=== PATIENT | female | born 1935 | race Caucasian/White ===

== ENCOUNTER 2017-09-12 08:04 | Outpatient (CLI) | payer MEDICARE ==
[2017-09-12] MEDS ORDERED: Lidocaine 1% PF 10 ML AMP ONE (08:30)
[2017-09-12] MEDS ORDERED: Iopamidol 300 61% 50 ML VIAL FS ONE (08:30)
[2017-09-12] MEDS ORDERED: EPINEPHrine 1 MG/ML AMP ONE (08:30)
[2017-09-12] MEDS ORDERED: Sodium Chloride 0.9% 50 ML BAG ONE (08:30)
--- NOTE | 2017-09-12 12:24 | RAD ---
LEFT SHOULDER ARTHROGRAM: INDICATIONS: Shoulder pain. TECHNIQUE: Informed consent was obtained. Pre-procedure ict support engineer images were performed of the left shoulder joint. The left shoulder joint was sterilely prepped and draped in the usual sterile fashion. Buffered 1% Lidocaine was administered to the overlying subcutaneous tissues. Under fluoroscopic guidance, a 22 gauge spinal needle was guided down into the glenohumeral joint. There was administration of 8 mL o f diluted Omnipaque solution, so the patient's CT arthrogram was ordered to follow this procedure. T he patient tolerated the injection without difficulty. The total fluoroscopic time was 0.5 minutes. Total exposure was 62.5 mGy per m2. FINDINGS: Medical Doctor images demonstrate a comminuted, healing fracture involving the scapular body with fracture ext ension through the lateral border of the scapula, just inferior to the glenoid neck. The prosthesis projects in the expected position without overt evidence of loosening. There is no overt involvement of the left total shoulder prosthesis. There is diffuse osteopenia. IMPRESSION: 1. Successful left shoulder arthrogram. 2. Comminuted healing left scapular body fracture. POS: [facility]
--- NOTE | 2017-09-12 12:33 | CT ---
CT ARTHROGRAM OF THE LEFT SHOULDER: INDICATION: History of fall with left shoulder pain and left total shoulder replacement, concern for possible rot ator cuff tear. COMPARISON: Prior exam dated 02/07/15. FINDINGS: There is left total shoulder prosthesis that projects in the expected position. There is a small full-thickness tear involving the anterior infraspinatus and posterior supraspinatus at the region of the conjoined tendons best seen on image 17 on the sagittal series and image 35 of the coronal series. The polyethylene glenoid prosthesis is in place. There is a healing comminuted scapular body fracture with fracture comminution extension to the infer ior aspect of the glenoid neck on image 42 of series 4. There is no evidence for fracture extension into the glenoid articular surface or the central to superior aspect of the glenoid. The coracoid pr ocess is intact. Fracture comminution does extend near the origin of the acromial spine in the super omedial aspect of the scapula. The AC joint appears within normal limits. The intraarticular biceps tendon is not definitely visual ized and may be disrupted and distally retracted. The visualized left lung demonstrates some mild scattered ground-glass opacity which may be related t o subsegmental atelectasis or mild edema. No pleural effusion is evident. There is a 1.6 cm focus o f heterotopic ossification just anterior to the subscapularis within the region of the proximal carpa l brachialis which may be postsurgical in nature. IMPRESSION: 1. Focal full-thickness tear of the rotator cuff at the conjoined tendon area of the posterior supra spinatus and anterior infraspinatus. 2. Healing comminuted scapular body fracture with fracture comminution extending and involving the i nferior aspect of the glenoid neck without extension into the central or superior aspect of the gleno id neck. 3. Suspected full thickness disruption of the long head of the biceps tendon with distal retraction. 4. Scattered ground-glass opacities of the lung may reflect subsegmental atelectasis or mild airspac e edema. POS: [facility]
== END 2017-09-12 08:05 | disposition home or self-care (01) ==
LOC: RAD 08:04
PROVIDERS: ATTEND Orthopaedic Surgery
DX: M25.512 Pain in left shoulder (principal); M75.102 Unspecified rotator cuff tear or rupture of left shoulder, not specified as traumatic; S42.142D Displaced fracture of glenoid cavity of scapula, left shoulder, subsequent encounter for fracture with routine healing; S42.112D Displaced fracture of body of scapula, left shoulder, subsequent encounter for fracture with routine healing; R91.8 Other nonspecific abnormal finding of lung field
CPT/HCPCS: 23350; J0171; J7050

== ENCOUNTER 2018-06-19 14:03 | Outpatient (CLI) | payer MEDICARE | END 2018-06-19 14:04 | disposition home or self-care (01) | LOC: BICMAMMO 14:03 | PROVIDERS: ATTEND Internal Medicine | DX: Z12.31 Encounter for screening mammogram for malignant neoplasm of breast (principal); R92.1 Mammographic calcification found on diagnostic imaging of breast; Z80.3 Family history of malignant neoplasm of breast | CPT/HCPCS: 77063; 77067 ==

== ENCOUNTER 2019-03-23 14:00 | Inpatient (IN) | payer MEDICARE ==
[2019-03-24 15:00] VITALS: BMI 30.7
[2019-03-25] MEDS ORDERED: Sodium Chloride 0.9% 100 ML ONE (08:01)
[2019-03-25] MEDS ORDERED: Tranexamic Acid 1,000 MG/10 ML VIAL ONE (08:01)
[2019-03-25] MEDS ORDERED: Vancomycin HCl 1.5 GM in Sodium Chloride 0.9% 250 ML 300 ML IVPB SCH ×3 (08:15→21:00)
[2019-03-25] MEDS ORDERED: Fentanyl 100 MCG/2 ML VIAL ONE (08:42)
[2019-03-25] MEDS ORDERED: Midazolam HCl 2 mg/2 ml Vial ONE (08:42)
[2019-03-25] MEDS ORDERED: Lidocaine 1% (PF) 30 ML VIAL ONE (08:42)
[2019-03-25] MEDS ORDERED: Zolpidem Tartrate 5 MG TAB PO PRN ×2 (10:01→14:52)
[2019-03-25] MEDS ORDERED: Promethazine HCl 25 MG/ML VIAL IM PRN (10:01)
[2019-03-25] MEDS ORDERED: HYDROcodone/Acetaminophen 10/325 mg Tablet PO PRN ×3 (10:01→14:52)
[2019-03-25] MEDS ORDERED: Ondansetron PF 4 MG/2 ML Vial IVP PRN ×2 (10:01→14:52)
[2019-03-25] MEDS ORDERED: traMADol HCl 50 MG TAB PO PRN ×4 (10:01→14:52)
[2019-03-25] MEDS ORDERED: Ropivacaine 0.2% 550 ML 550 ML NERVE BLCK SCH (10:01)
[2019-03-25] MEDS ORDERED: Acetaminophen 325 MG TAB PO PRN ×2 (10:01→14:52)
[2019-03-25] MEDS ORDERED: Fentanyl 100 MCG/2 ML VIAL IV PRN (10:02)
--- NOTE | 2019-03-25 13:35 | RAD ---
Exam: XR Shoulder Rt 2 View HISTORY: Right total shoulder arthroplasty. COMPARISON: None FINDINGS: Postsurgical changes related to placement of a right shoulder prosthesis are noted. Overlying skin cl ips are seen. No hardware complication is identified. No fracture or dislocation is seen. There is mild right acromioclavicular joint osteoarthritis. There is a calcification seen just medial to the small right humeral diaphysis. There is mild elevation of the right hemidiaphragm with atelectasis at the right lung base. A hiatal hernia is seen in the retrocardiac region with atelectasis present at the left lung base. Vascular calcifications are seen in the thoracic aorta. Degenerative changes are seen in the spine. IMPRESSION: Postsurgical changes related to right shoulder prosthesis.
[2019-03-25] MEDS ORDERED: Milk Of Magnesia 30 ML UDCUP PO PRN (14:52)
[2019-03-25] MEDS ORDERED: Methocarbamol 1 GM/10 ML VIAL SLOW IVP PRN (14:52)
[2019-03-25] MEDS ORDERED: Ondansetron ODT 4 MG TAB PO PRN (14:52)
[2019-03-25] MEDS ORDERED: Bisacodyl 10 MG SUPP PR PRN (14:52)
[2019-03-25] MEDS ORDERED: diphenhydrAMINE 50 MG CAP PO PRN (14:52)
[2019-03-25] MEDS ORDERED: Methocarbamol 500 MG TAB PO PRN (14:52)
[2019-03-25] MEDS ORDERED: Nitroglycerin 4.9 GM Bottle SL PRN (15:08)
--- NOTE | 2019-03-25 15:16 | OP ---
DATE OF PROCEDURE: 03/25/2019 PREOPERATIVE DIAGNOSES: 1. Right shoulder osteoarthritis. 2. Biceps tendinopathy. POSTOPERATIVE DIAGNOSES: 1. Right shoulder osteoarthritis. 2. Biceps tendinopathy. PROCEDURES PERFORMED: 1. Right total shoulder arthroplasty. 2. Biceps tenodesis. ASSISTANT CORPORATE CONTROLLER: Lexa Sanders PA-C. ANESTHESIA: Horowitz. The patient received a general endotracheal intubation with interscalene block. ESTIMATED BLOOD LOSS: 200 mL. TOURNIQUET TIME: None. IMPLANTS: Tornier M40 CortiLoc glenoid to a flex stem, a 43 x 6 mm high offset head, Tornier implants. ANTIBIOTICS: Ancef 2 g and vancomycin 1.5 g, and TXA 1 g. COMPLICATIONS: None. HISTORY OF PRESENT ILLNESS: Ms. Hager is an 83-year-old female, who had a previous left total shoulder arthroplasty. The patient presents with right shoulder pain. She had failed conservative measures with injections. The patient desired to proceed with operative intervention. I discussed the risks and benefits of surgery include pain, scar, bleeding, infection, damage to vital structures, decreased range of motion and strength, failure of procedure, continued pain despite surgical intervention, loss of life or limb. The patient understood the risks and benefits of the procedure and would like to proceed. DESCRIPTION OF PROCEDURE: Time-out was performed, designating the patient's right upper extremity as operative site based on site, consents, and marking. After a time-out, the patient's right upper extremity was prepped and draped in a sterile fashion. We made a deltopectoral incision, came down between the deltoid and the pectoralis muscle, took the vein medially. We put our conjoined retractor and found our biceps, came through the biceps groove. She had a small lesser and kind of nodular bulbous tissue. Therefore, I did a tendon peel, I peeled off and exposed the entire humeral head joint inferiorly. After exposing the head, there was some tori rusting fluid, seem like hemarthrosis, that was noted intra-articularly as well as kind of a dark and black head that could be some signs of AVN. We placed Hohmann retractors to protect and cut the head. We removed the bone. We then traced our opening awl, broached, and placed a size 3 stem. We placed our head cap on after we had cleaned into position. We then exposed the glenoid. A 360 release of the glenoid, removing the labrum after completion of this. We then sized to a 40, placed our center hole. We did our 2 stage reamer, drilled for large center peg, placed in position, drilled 3 holes in the glenoid. We happy with those positions. We washed. We started our cement. We trialed her in 40, which had good firm fixation. We removed it . We cemented in the 3 center pegs with out CortiLoc glenoid. We then removed this and went back to our humerus. We trialed. We felt like the 43 head fit the bone the best top to bottom and removed it. We drilled 4 drill holes with the sutures coming out through the metaphyseal portion of the bone. We sew the tendon down in for the peel. At the completion of the hardening of cement after 18 minutes, we placed our trial in, reduced, was able to do 40 degrees external rotation, placed upon internal and overhead elevation. We happy that. We placed our one more drill hole laterally and passed a suture to help with the 2nd row suture repair. I then washed, impacted our stem, implanted into place. We then sewed the cuff anteriorly, placing W stitches up and down through the cuff, sew over to our four stitches that were along the border of the tuberosity. We sewed from them from inferior to superior. After completion of this, we used a #1 Ethibond to close the rotator interval. We tenodesed our biceps with #1 Ethibond and 1 Vicryl to tenodese the biceps in the groove. We then closed the rest of it to ensure as we closed. We then used the 2 stitches, one in the more medialized subscap and near the greater tuberosity to a double row over the top, so those together and cut, washed, we were happy with the closure. We closed the deltopectoral interval with 0, 2-0, and kiko. The patient will be admitted, followed in-house, begin passive range of motion per protocol. Job ID: [id number]
[2019-03-25] MEDS: CEFAZOLIN 2 GM in Premix Bag 1 BAG IVPB SCH ×2 (16:13→23:57)
[2019-03-25] MEDS: Sodium Chloride 0.9% 1,000 ML IV SCH (16:23)
[2019-03-25] MEDS: Gabapentin 300 MG CAP PO SCH (19:48)
[2019-03-25] MEDS: Atorvastatin Calcium 20 MG TAB PO SCH (19:48)
[2019-03-25] MEDS: Famotidine 20 MG TAB PO SCH (19:49)
[2019-03-25] MEDS: ALPRAZolam 0.25 MG TAB PO SCH (19:49)
[2019-03-25] MEDS: Ketorolac Tromethamine 30 MG/ML VIAL IVP PRN (19:50)
[2019-03-26] MEDS: HYDROcodone/Acetaminophen 10/325 mg Tablet PO PRN ×2 (02:20→14:23)
[2019-03-26] MEDS: Levothyroxine Sodium 100 MCG TAB PO SCH (06:13)
[2019-03-26] MEDS: Sodium Chloride 0.9% 1,000 ML IV SCH ×2 (08:14→20:21)
[2019-03-26] MEDS: Nebivolol HCl 5 MG TAB PO SCH (08:52)
[2019-03-26] MEDS: Gabapentin 300 MG CAP PO SCH ×3 (08:53→20:19)
[2019-03-26] MEDS: Calcium Carbonate + Vit D 1 TAB PO SCH (08:53)
[2019-03-26] MEDS: ALPRAZolam 0.25 MG TAB PO SCH ×3 (08:53→20:19)
[2019-03-26] MEDS: Acetaminophen 325 MG TAB PO SCH (08:53)
[2019-03-26] MEDS: Potassium Chloride 10 MEQ TAB PO SCH (08:54)
[2019-03-26] MEDS: Famotidine 20 MG TAB PO SCH ×2 (08:54→20:19)
[2019-03-26] MEDS: Aspirin Chewable 81 MG TAB PO SCH (08:54)
[2019-03-26] MEDS: Furosemide 40 MG TAB PO SCH (08:54)
[2019-03-26] MEDS: Atorvastatin Calcium 20 MG TAB PO SCH (20:20)
[2019-03-27] MEDS: Ketorolac Tromethamine 30 MG/ML VIAL IVP PRN (02:42)
[2019-03-27 04:07] VITALS: TEMP 98.6
[2019-03-27] MEDS: Levothyroxine Sodium 100 MCG TAB PO SCH (06:45)
[2019-03-27 07:33] VITALS: BP 148/79
[2019-03-27] MEDS: Potassium Chloride 10 MEQ TAB PO SCH (08:28)
[2019-03-27] MEDS: Acetaminophen 325 MG TAB PO SCH (08:29)
[2019-03-27] MEDS: Furosemide 40 MG TAB PO SCH (08:30)
[2019-03-27] MEDS: Nebivolol HCl 5 MG TAB PO SCH (08:30)
[2019-03-27] MEDS: Calcium Carbonate + Vit D 1 TAB PO SCH (08:30)
[2019-03-27] MEDS: Gabapentin 300 MG CAP PO SCH (08:30)
[2019-03-27] MEDS: Aspirin Chewable 81 MG TAB PO SCH (08:30)
[2019-03-27] MEDS: Famotidine 20 MG TAB PO SCH (08:30)
[2019-03-27] MEDS: ALPRAZolam 0.25 MG TAB PO SCH (08:31)
== END 2019-03-27 10:40 | disposition home or self-care (01) | DRG 483 ==
LOC: SJJU 03-25 07:35 → SURG B 03-25 14:15
PROVIDERS: ADMIT Orthopaedic Surgery; ATTEND Orthopaedic Surgery
PROC: 0RRJ0JZ Replacement of Right Shoulder Joint with Synthetic Substitute, Open Approach (ICD-10-PCS; principal; 2019-03-25)
PROC: 0LS30ZZ Reposition Right Upper Arm Tendon, Open Approach (ICD-10-PCS; 2019-03-25)
DX: M19.011 Primary osteoarthritis, right shoulder (principal); E03.9 Hypothyroidism, unspecified; Z96.652 Presence of left artificial knee joint; M54.12 Radiculopathy, cervical region; Z90.89 Acquired absence of other organs; Z79.82 Long term (current) use of aspirin; Z79.899 Other long term (current) drug therapy
CPT/HCPCS: 80048; 81001; 85025; 85610; 93005; A4306; J0690; J1885; J2001; J2250; J2795; J3010; J3370; J3490; J7050

== ENCOUNTER 2019-03-24 13:54 | Outpatient (CLI) | payer MEDICARE ==
[2019-03-24 17:00] LABS: #Eosinphils 0.1 thou/uL (0.0-0.7); #Lymphocytes 2.5 thou/uL (1.20-3.40); #Monocytes 0.5 thou/uL (0.11-0.59); #Neutrophils 3.1 thou/uL (1.40-6.50); %Basophils 0.8 % (0.0-1.0); %Eosinophils 1.3 % (0.0-10.0); %Lymphocytes 39.9 % (21.0-51.0); Hemoglobin 12.8 g/dL (12.0-16.0); Mean Corpuscular HGB CONC 33.6 g/dL (32.0-36.0); Mean Corpuscular Hemoglobin 33.4 pg (27.0-31.0); Mean Corpuscular Volume 99.3 fL (78.0-98.0); Mean Platelet Volume 6.6 fL (7.4-10.4); Platelet Count 264 thou/uL (130-400); RBC Distribution Width 12.4 % (11.5-14.5); Red Blood Cell (RBC) Count 3.83 mill/uL (4.20-5.40); White Blood Cell (WBC) Count 6.3 thou/uL (4.8-10.8)
[2019-03-24 17:02] LABS: Prothrombin Time 12.8 SEC (12.0-14.7)
[2019-03-24 17:09] LABS: Bilirubin Negative (Negative); Blood, Urine Negative (Negative); Clarity Clear (Clear); Glucose, Urine (Dipstick) Normal (Negative); Leukocyte Negative Leu/uL (Negative); Nitrite Negative (Negative); Protein, Urine (Dipstick) Negative (Neg-Trace); RBC/HPF 0-3 HPF (0-3); Squamous Epithelial 0-3 HPF (0-3); Urobilinogen Normal mg/dL (Less than 2); WBC/HPF 0-3 HPF (0-3)
[2019-03-24 17:10] LABS: Bacteria/HPF 1+ HPF (None Seen)
--- NOTE | 2019-03-24 17:13 | EKG ---
Test Reason : Blood Pressure : / mmHG Vent. Rate : 060 BPM Atrial Rate : 060 BPM P-R Int : 188 ms QRS Dur : 098 ms QT Int : 470 ms P-R-T Axes : 042 -35 030 degrees QTc Int : 470 ms Normal sinus rhythm Left axis deviation Cannot rule out Anterior infarct , age undetermined Abnormal ECG Confirmed by MAREK ROSALES ([id number]) on 03/24/2019 5:12:34 PM Referred By: MARIA EUGENIA Confirmed By:MAREK ROSALES
[2019-03-24 17:25] LABS: Anion Gap 12 mmol/L (10-20); BUN (Urea Nitrogen) 24 mg/dL (9.8-20.1); Calc. Creatinine Clearance 0 mL/min (70-130); Calcium 9.2 mg/dL (7.8-10.44); Carbon Dioxide 27 mmol/L (23-31); Chloride 107 mmol/L (98-107); Estimated GFR-MDRD 51; Glucose 77 mg/dL (83-110); Potassium 3.8 mmol/L (3.5-5.1); Sodium 142 mmol/L (136-145)
== END 2019-03-24 13:55 | disposition home or self-care (01) ==
LOC: LABBT 13:54
PROVIDERS: ATTEND Orthopaedic Surgery
DX: Z01.818 Encounter for other preprocedural examination (principal); M19.011 Primary osteoarthritis, right shoulder
CPT/HCPCS: 80048; 81001; 85025; 85610; 93005; 93010

== ENCOUNTER 2019-12-10 09:08 | Observation (INO) | payer MEDICARE ==
--- NOTE | 2019-12-10 11:28 | CT ---
EXAM: CTA of the chest HISTORY: Chest pain and weakness COMPARISON: None TECHNIQUE: Multiple contiguous axial images were obtained a CTA of the chest with contrast per pulmon candelario embolism protocol. 3-D oblique MIP reformats and direct coronal reformats were performed. FINDINGS: HEART: Normal in size without focal cardiac abnormality. PULMONARY ARTERIES: Normal in caliber without filling defects to suggest pulmonary emboli. MEDIASTINUM: No hilar or mediastinal lymphadenopathy. There is a large hiatal hernia. LUNGS: No focal infiltrates or masses. Scarring versus atelectasis is seen in the lingula. PLEURAL SPACE: No pleural effusion or pneumothorax. CHEST WALL SOFT TISSUES: Unremarkable VISUALIZED OSSEOUS STRUCTURES: Degenerative changes in the spine. VISUALIZED SUBDIAPHRAGMATIC STRUCTURES: Unremarkable IMPRESSION: 1. No evidence of pulmonary thromboembolism 2. Large hiatal hernia
[2019-12-10] MEDS ORDERED: Iopamidol-370 76% 500 ML 1 ML ONE (12:28)
--- NOTE | 2019-12-10 12:49 | HP ---
PRIMARY CARE PROVIDER: Dr. Montez. SCHOOL PSYCHOLOGY SPECIALIST: Dr. Fontanez. The patient woke this morning at 2 a.m. sweating, felt weak all over and had pressure in her chest, some shortness of breath. No radiation of the chest pressure. No nausea. No fever or chills. PAST MEDICAL HISTORY: She has coronary artery disease, has had multiple cardiac caths, has not had any definitive therapy. She has elevated cholesterol, hypothyroidism, gastroesophageal reflux disease, and hypothyroidism. MEDICINES: 1. Aspirin 81 mg a day. 2. Lipitor 40 mg a day. 3. Bystolic 10 mg a day. 4. Lasix 20 mg a day. 5. Potassium chloride 10 mEq a day. 6. Xanax 0.25 mg twice a day. 7. Gabapentin 600 mg a day at bedtime. 8. Levothyroxine 100 mcg a day. 9. Nitroglycerin p.r.n. 10. Omeprazole 20 mg once a day. 11. Ranexa 100 mg p.o. twice a day. ALLERGIES: CHAU INHIBITORS, HYDROCODONE, TETANUS IMMUNOGLOBULIN, TETANUS TOXOID, TRAMADOL. PAST SURGICAL HISTORY: Bilateral shoulder surgery, bilateral knee surgery, bilateral cataract surgery. SOCIAL HISTORY: She has a granddaughter with diabetes. She has a sister with breast cancer. Mother of colon cancer. She is x2. She states she is do not resuscitate. She is oriented x3. She states Yokasta Corona in [place] is her daughter and next of kin for decision making. No tobacco, no alcohol ever. REVIEW OF SYSTEMS: GENERAL: No headaches, dizziness or fainting. Eyes: No double vision, blurred vision, flashing lights. She wears glasses. ENT: No ear pain or drainage. No nasal bleeding. No trouble swallowing. No oral pain. Cardiac: Frequent episodes of pressured chest pain lasting up to 1 hour to time. She states she just puts her hand over her left chest and holds it there till it goes away. No orthopnea or PND. RESPIRATION: No cough, wheezing, or asthma. GASTROINTESTINAL: No nausea, vomiting, diarrhea, or constipation. No blood in her stools. GENITOURINARY: No hematuria or dysuria. MUSCULOSKELETAL: She takes Lasix to prevent swelling in her legs. No muscle pains or joint pains. Of note, at this time, she does have limited range of motion of both shoulders post surgery. NEUROLOGICAL: No strokes, seizures or focal weakness. PSYCHIATRIC: No anxiety or depression issues. SKIN: No bruising, bleeding, or rash. HEME/LYMPH: No tender or swollen lymph nodes in axilla, inguinal, or cervical area. PHYSICAL EXAMINATION: GENERAL: She is alert, oriented, cooperative lady, in no distress at this time. VITAL SIGNS: Blood pressure 148/72, pulse 65, respirations 18, temperature 98.2, room air sat 95% to 96% at room air. HEAD, EYES, EARS, NOSE, AND THROAT: Revealed pupils equal round with implants. Sclerae are white. Extraocular movements are intact. Tympanic membranes clear. Nose clear. Oral mucous membranes are wet. NECK: No jugular venous distention, adenopathy or thyromegaly. CHEST: Clear to auscultation percussion. HEART: Regular rate and rhythm. First second second heart sounds are clear. There are no appreciated murmurs or gallops. ABDOMEN: Soft. Bowel sounds are normal. There is no hepatosplenomegaly. No mass. No rebound. No bruits. EXTREMITIES: Reveal no cyanosis, clubbing, or edema. PULSES: Carotid, radial, femoral, and dorsalis pedis pulses intact and symmetric. SKIN: Warm and dry. HEME/LYMPH: No tender or swollen lymph nodes in the inguinal, axillary, or cervical range. NEUROLOGICAL: Cranial nerves 2 through 12 are intact. Deep tendon reflexes symmetric. LABORATORY DATA: EKG personally reviewed. No acute ST-T abnormality. Regular sinus rhythm. CT of the chest done. No evidence for PT or infiltrates. Personally reviewed. Laboratory done in [place]; white count 6.3, hemoglobin 11.0, platelet count 209,000. D-dimer 0.46. Sodium 140, potassium 4.2, chloride 108, CO2 of 22, BUN 29, creatinine 1.0, blood sugar 113. Liver tests normal. BNP 195. Troponin 0.015, 0.018. ASSESSMENT: 1. Chest pain. 2. Coronary artery disease documented on multiple occasions and cardiac cath. No intervention recommended. 3. Elevated cholesterol. 4. Hypothyroidism. PLAN: Aspirin. Serial enzymes. Home medicines. Discuss need for further intervention after the third set of enzymes is available. Job ID: [id number]
[2019-12-10 14:22] LABS: Troponin I Less than 0.010 ng/mL (< 0.028)
[2019-12-10] MEDS ORDERED: Sodium Chloride 0.9% 1,000 ML IV SCH (15:29)
[2019-12-10] MEDS ORDERED: Ondansetron ODT 4 MG TAB SL PRN (15:29)
[2019-12-10] MEDS ORDERED: Ondansetron PF 4 MG/2 ML Vial IVP PRN (15:29)
[2019-12-10] MEDS ORDERED: Nitroglycerin 0.4 MG TAB (25 Tab Bottle) PO PRN (16:25)
[2019-12-10 17:02] LABS: Troponin I Less than 0.010 ng/mL (< 0.028)
[2019-12-10 17:10] VITALS: BMI 31.6
[2019-12-10] MEDS: Acetaminophen 325 MG TAB PO SCH (20:17)
[2019-12-10] MEDS: Gabapentin 400 MG CAP PO SCH (20:17)
[2019-12-10] MEDS ORDERED: ALPRAZolam 0.25 MG TAB PO SCH (21:00)
[2019-12-10] MEDS ORDERED: Atorvastatin Calcium 20 MG TAB PO SCH (21:00)
[2019-12-10] MEDS ORDERED: Nebivolol HCl 5 MG TAB PO SCH (21:00)
[2019-12-11] MEDS ORDERED: Levothyroxine Sodium 100 MCG TAB PO SCH (06:00)
[2019-12-11] MEDS: Gabapentin 400 MG CAP PO SCH (08:14)
[2019-12-11] MEDS: Acetaminophen 325 MG TAB PO SCH (08:14)
[2019-12-11] MEDS ORDERED: Potassium Chloride 10 MEQ TAB PO SCH (09:00)
[2019-12-11] MEDS ORDERED: Aspirin 325 mg Enteric Coated Tablet PO SCH (09:00)
[2019-12-11] MEDS ORDERED: Nebivolol HCl 5 MG TAB PO SCH (09:00)
[2019-12-11] MEDS ORDERED: Loratadine 10 MG TAB PO SCH (09:00)
[2019-12-11] MEDS ORDERED: Enoxaparin Sodium 40 MG/0.4 ML SYRINGE SC SCH (09:00)
[2019-12-11] MEDS ORDERED: Furosemide 40 MG TAB PO SCH (09:00)
[2019-12-11 10:01] VITALS: BP 162/75; TEMP 98.1
--- NOTE | 2019-12-13 15:02 | DIS ---
DATE OF ADMISSION: 12/10/2019 DATE OF DISCHARGE: 12/11/2019 REASON FOR HOSPITALIZATION: Discomfort from hiatal hernia. SIGNIFICANT FINDINGS: On a CT of the chest, the patient was found to have a large hiatal hernia, and this was an explanation for her abdominal discomfort/epigastric chest pain. 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 Fontanez, and has had multiple cardiac catheterizations in the past. She states that she recently saw him, and she is doing well from his perspective. The patient had serial cardiac enzymes x3 and they were all negative. The patient's metabolic workup was benign. I evaluated the patient on 12/11/2019 and her symptoms have resolved completely. I informed her that her symptoms are likely secondary to hiatal hernia, and this may be discussed further with her primary care physician in the outpatient setting. The patient states that she will follow up with her primary care physician and pulp house supervisor in the upcoming 1 to 2 weeks. CONDITION ON DISCHARGE: Stable. DISCHARGE MEDICATIONS: No changes to discharge medications/home medications. Please see full medication reconciliation for details. TIME SPENT: Greater than 33 minutes spent in coordinating care and discharge process for this patient. Job ID: [id number]
== END 2019-12-11 14:02 | disposition home or self-care (01) ==
LOC: ERS 09:08 → ERHOLD 12:06 → 2NO 15:53
PROVIDERS: ADMIT Internal Medicine; ATTEND Internal Medicine
DX: K44.9 Diaphragmatic hernia without obstruction or gangrene (principal); R10.13 Epigastric pain; I25.10 Atherosclerotic heart disease of native coronary artery without angina pectoris; E78.00 Pure hypercholesterolemia, unspecified; E89.0 Postprocedural hypothyroidism; K21.9 Gastro-esophageal reflux disease without esophagitis; Z66 Do not resuscitate; Z79.82 Long term (current) use of aspirin; Z79.899 Other long term (current) drug therapy; Z88.5 Allergy status to narcotic agent; Z88.6 Allergy status to analgesic agent; Z88.8 Allergy status to other drugs, medicaments and biological substances
CPT/HCPCS: 36415; 71275; 85379; 93005; 94760; 96372; G0378; J1650; Q9967

== ENCOUNTER 2020-03-10 11:49 | Inpatient (IN) | payer MEDICARE, OTHER ==
--- NOTE | 2020-03-10 12:33 | RAD ---
Exam: Chest one view HISTORY:Cough. Dyspnea. Comparison: 12/10/2019 FINDINGS: Cardiac silhouette:Normal cardiac silhouette. Stable density projecting over the heart likely represe nts a hiatal hernia Aorta: Unremarkable Pulmonary vessels: Normal Costophrenic angles: Clear LUNGS: Scattered interstitial and alveolar opacities. Pneumothorax: None Osseous abnormalities: Incompletely evaluated bilateral humeral prostheses. IMPRESSION: Findings suggesting multifocal pneumonia.
[2020-03-10 12:54] LABS: ALT (SGPT) 8 U/L (8-55); AST (SGOT) 19 U/L (5-34); Albumin 3.7 g/dL (3.4-4.8); Alkaline Phosphatase 61 U/L (40-110); Anion Gap 12 mmol/L (10-20); BUN (Urea Nitrogen) 30 mg/dL (9.8-20.1); Calc. Creatinine Clearance 0 mL/min (70-130); Calcium 9.2 mg/dL (7.8-10.44); Carbon Dioxide 27 mmol/L (23-31); Chloride 104 mmol/L (98-107); Estimated GFR-MDRD 53; Globulin 3.6 g/dL (2.4-3.5); Glucose 85 mg/dL (83-110); Potassium 4.4 mmol/L (3.5-5.1); Protein, Total 7.3 g/dL (6.0-8.3); Sodium 139 mmol/L (136-145)
[2020-03-10 13:06] LABS: #Eosinphils 0.1 thou/uL (0.0-0.7); #Lymphocytes 1.1 thou/uL (1.20-3.40); #Monocytes 0.5 thou/uL (0.11-0.59); #Neutrophils 8.4 thou/uL (1.40-6.50); %Basophils 0.5 % (0.0-1.0); %Eosinophils 1.3 % (0.0-10.0); %Lymphocytes 11.1 % (21.0-51.0); %Monocytes 4.5 % (0.0-10.0); %Neutrophils 82.7 % (42.0-75.0); Hemoglobin 13.6 g/dL (12.0-16.0); Mean Corpuscular HGB CONC 32.3 g/dL (32.0-36.0); Mean Corpuscular Hemoglobin 33.1 pg (27.0-31.0); Mean Platelet Volume 6.8 fL (7.4-10.4); Platelet Count 298 thou/uL (130-400); RBC Distribution Width 12.3 % (11.5-14.5); Red Blood Cell (RBC) Count 4.12 mill/uL (4.20-5.40); White Blood Cell (WBC) Count 10.2 thou/uL (4.8-10.8)
[2020-03-10] MEDS ORDERED: CEFAZOLIN 1 GM VIAL ONE (13:16)
[2020-03-10] MEDS ORDERED: Acetaminophen 325 MG TAB ONE (13:16)
[2020-03-10] MEDS ORDERED: Dexamethasone 6 MG in Sodium Chloride 0.9% 50 ML IVPB SCH ×2 (14:00→23:30)
--- NOTE | 2020-03-10 14:49 | PDOC.HHP ---
Hospitalist HPI - History of Present Illness Shortness of breath, cough History of Present Illness: This is an 84-year-old female patient with a history of Coronary disease, GERD, hiatal hernia and hypertension who presents with worsening shortness of breath for the past couple of weeks. She was in her usual state of health when the symptoms started. Associated with cough productive of whitish sputum with occasional bloody change. She denies any fever, pleuritic chest pain, wheezing. She lives alone however she has a roller maker friend who lives out for her. She denies any contact if any known call with patient. No recent travels. Her friend notes that she has passed out and fallen twice in the past 2 weeks old from assisted up to stand position. She denied any associated head injury however had lingering right flank pain and pain in her left little finger. She also denies any abdominal pain, nausea vomiting, diarrhea, dysuria frequency. At presentation Vitals were blood pressure 110/62, respiratory rate 23, saturating 86 on room air, her labs showed CRP 8.34, d-dimer 1.29, BNP 102.3, tr oponin 0 0.01, WBC 4.12,. A chest x-ray showed bilateral multifocal pneumonia concerning for COVID. COVID test was positive In the ED she was given cefazolin for empirical pneumonia coverage. She re ceived acetaminophen for fever. She was on 4 L of oxygen at the time of my evaluation. Hospitalist team consulted for admission Hospitalist ROS - Review of Systems Constitutional: denies: fever, chills, sweats Respiratory: reports: cough (Whitish blood-tinged sputum), shortness of breath, hemoptysis, SOB with excertion Cardiovascular: denies: chest pain, palpitations, orthopnea, paroxysmal noc. dyspnea Gastrointestinal: denies: nausea, vomiting, abdominal pain, diarrhea Genitourinary: denies: dysuria, frequency, incontinence, hematuria Musculoskeletal: reports: hand pain. denies: neck pain, shoulder pain, arm pain, back pain Neurological: denies: weakness, numbness, incoordination, change in speech - Medication Medications: Aspirin 81 mg daily Nebivolol 10 mg daily Lasix 40 mg daily Gabapentin 600 mg Levothyroxine 100 mg daily Atorvastatin 20 mg daily Loratadine 10 mg daily Nitroglycerin 0.5 mg daily Meprazole 20 mg daily Potassium chloride 10 mg daily Ranolazine thousand milligrams twice daily Acetaminophen 650 3 times daily Alprazolam 0.25 at bedtime Allergies: CHAU inhibitors, tramadol, hydrocodone Hospitalist History - Past Medical History Cardiac: reports: CAD, HTN Gastrointestinal: reports: GERD - Past Surgical History Other Surgical History: Thyroidectomy, shoulder surgery Bilateral knee replacement. - Exam General Appearance: awake alert General - other findings: In mild respiratory distress. Eye: PERRL, anicteric sclera ENT: normocephalic atraumatic, no oropharyngeal lesions Neck: supple, symmetric, no JVD Heart: RRR, no gallops, no rubs Respiratory: rales, tachypneic, wheezes Gastrointestinal: soft, non-tender, non-distended, normal bowel sounds Extremities: no cyanosis, no clubbing, no edema Neurological: cranial nerve grossly intact, normal sensation to touch Psychiatric: A&O x 3 Hospitalist Results - Labs Result Diagrams: 03/10/20 12:50 03/10/20 12:32 Lab results: WBC 10.2 thou/uL (4.8-10.8) 03/10/20 12:50 Hgb 13.6 g/dL (12.0-16.0) 03/10/20 12:50 Hct 42.2 % (36.0-47.0) 03/10/20 12:50 MCV 102.0 fL (78.0-98.0) H 03/10/20 12:50 Plt Count 298 thou/uL (130-400) 03/10/20 12:50 Neutrophils % 82.7 % (42.0-75.0) H 03/10/20 12:50 Sodium 139 mmol/L (136-145) 03/10/20 12:32 Potassium 4.4 mmol/L (3.5-5.1) 03/10/20 12:32 Chloride 104 mmol/L (98-107) 03/10/20 12:32 Carbon Dioxide 27 mmol/L (23-31) 03/10/20 12:32 BUN 30 mg/dL (9.8-20.1) H 03/10/20 12:32 Creatinine 0.99 mg/dL (0.6-1.1) 03/10/20 12:32 Glucose 85 mg/dL (83-110) 03/10/20 12:32 Calcium 9.2 mg/dL (7.8-10.44) 03/10/20 12:32 Total Bilirubin 1.0 mg/dL (0.2-1.2) 03/10/20 12:32 AST 19 U/L (5-34) 03/10/20 12:32 ALT 8 U/L (8-55) 03/10/20 12:32 Alkaline Phosphatase 61 U/L (40-110) 03/10/20 12:32 Troponin I Less than 0.010 ng/mL (< 0.028) 03/10/20 12:33 B-Natriuretic Peptide 102.3 pg/mL (0-100) H 03/10/20 12:50 Serum Total Protein 7.3 g/dL (6.0-8.3) 03/10/20 12:32 Albumin 3.7 g/dL (3.4-4.8) 03/10/20 12:32 Hospitalist H&P A/P - Plan Plan: This is a 84-year-old female patient history of coronary disease, hypertension presented with worsening shortness of breath. Chest x-ray suggestive of multifocal pneumonia concerning for COVID. Pneumonia due to COVID. Elevated ferritin, d-dimer and CRP We will start her on dexamethasone Received antibioticscefazolin for coverage of pneumonia Admit to observation unit PRN oxygen therapy ID consult Hypertension Restart home blood pressure medications once verified. Coronary disease Awaiting verification medications to restart. VT prophylaxisLovenox. Will start therapeutic if covid is positive. CODE STATUSDNR Activity up with assistance.
[2020-03-10 15:41] LABS: SARS-CoV-2 NAA Rapid Test DETECTED (NotDetected)
[2020-03-10] MEDS ORDERED: Azithromycin 500 MG in Sodium Chloride 0.9% 250 ML 250 ML IVPB SCH (16:00)
[2020-03-10 23:10] VITALS: BMI 30.3
[2020-03-10] MEDS: Enoxaparin Sodium 40 MG/0.4 ML SYRINGE SC SCH (23:57)
[2020-03-11 04:55] LABS: #Lymphocytes 0.8 thou/uL (1.20-3.40); #Monocytes 0.1 thou/uL (0.11-0.59); #Neutrophils 8.3 thou/uL (1.40-6.50); %Basophils 0.3 % (0.0-1.0); %Eosinophils 0.5 % (0.0-10.0); %Lymphocytes 8.8 % (21.0-51.0); %Neutrophils 89.4 % (42.0-75.0); Hemoglobin 12.5 g/dL (12.0-16.0); Mean Corpuscular HGB CONC 33.2 g/dL (32.0-36.0); Mean Corpuscular Hemoglobin 32.7 pg (27.0-31.0); Mean Corpuscular Volume 98.3 fL (78.0-98.0); Mean Platelet Volume 6.7 fL (7.4-10.4); Platelet Count 316 thou/uL (130-400); RBC Distribution Width 12.2 % (11.5-14.5); Red Blood Cell (RBC) Count 3.82 mill/uL (4.20-5.40); White Blood Cell (WBC) Count 9.3 thou/uL (4.8-10.8)
[2020-03-11 05:19] LABS: Anion Gap 13 mmol/L (10-20); BUN (Urea Nitrogen) 26 mg/dL (9.8-20.1); Calc. Creatinine Clearance 67 mL/min (70-130); Calcium 8.4 mg/dL (7.8-10.44); Carbon Dioxide 22 mmol/L (23-31); Chloride 106 mmol/L (98-107); Estimated GFR-MDRD 69; Glucose 144 mg/dL (83-110); Sodium 137 mmol/L (136-145)
[2020-03-11] MEDS ORDERED: Enoxaparin Sodium 40 MG/0.4 ML SYRINGE SC SCH (09:00)
[2020-03-11] MEDS: Enoxaparin Sodium 40 MG/0.4 ML SYRINGE SC SCH ×2 (09:55→23:18)
[2020-03-11] MEDS: Dexamethasone 6 MG in Sodium Chloride 0.9% 50 ML IVPB SCH (13:31)
--- NOTE | 2020-03-11 14:09 | EKG ---
Test Reason : Blood Pressure : / mmHG Vent. Rate : 070 BPM Atrial Rate : 070 BPM P-R Int : 162 ms QRS Dur : 084 ms QT Int : 410 ms P-R-T Axes : 030 -39 -13 degrees QTc Int : 442 ms Normal sinus rhythm Left axis deviation Nonspecific ST and T wave abnormality Abnormal ECG Confirmed by AFSHIN LINARES ([id number]), international editorial producer JERMAIN FROST ([id number]) on 03/11/2020 2:08:43 PM Referred By: Confirmed By:AFSHIN oLpez
[2020-03-11] MEDS ORDERED: Nitroglycerin 0.4 MG TAB 1 EACH SL PRN (14:38)
--- NOTE | 2020-03-11 17:48 | PDOC.HOSPP ---
- Subjective Encounter Date: 03/11/20 Encounter Time: 17:30 Subjective: f/u for COVID PNA/AMS on Dexamethasone/Lovenox with some persistent confusion noted by nursing. Apparently sustained a fall at home prior to admit. - Objective Vital Signs & Weight: Vital Signs (12 hours) Temp Pulse Resp BP Pulse Ox 03/11/20 11:59 98.3 F 85 20 150/67 H 99 03/11/20 10:11 98 F 85 20 162/77 H 98 Weight Weight 176 lb 9.444 oz I&O: 03/10/20 03/11/20 03/12/20 06:59 06:59 06:59 Intake Total 50 Balance 50 Result Diagrams: 03/11/20 04:37 03/11/20 04:37 Additional Labs: Accuchecks 03/11/20 16:55 POC Glucose 108 H Laboratory Tests 03/10/20 03/10/20 03/10/20 12:25 12:25 12:25 D-Dimer 1.29 H Ferritin 143.60 C-Reactive Protein 8.34 H SARS-CoV-2 Rap RNA(RT-PCR) 03/10/20 14:27 D-Dimer Ferritin C-Reactive Protein SARS-CoV-2 Rap RNA(RT-PCR) DETECTED A* Microbiology 03/10/20 13:27 Venous blood - Right Arm Blood Culture - Preliminary Specimen has been received and culture in progress. No Growth to date. 03/10/20 13:27 Venous blood - Left Arm Blood Culture - Preliminary Specimen has been received and culture in progress. No Growth to date. EKG Reviewed by me: Yes (Tele - SR) Hospitalist ROS - Medication Medications: Active Medications Generic Name Dose Route Start Last Admin Trade Name Freq PRN Reason Stop Dose Admin Enoxaparin Sodium 40 mg 03/10/20 21:00 03/11/20 09:55 Enoxaparin Sodium 40 Mg/0.4 Ml Syringe SC 40 mg 0900,2100 RONNIE Administration Dexamethasone 6 mg/ Sodium 50.6 mls @ 100 mls/hr 03/11/20 14:00 03/11/20 13:31 Chloride IVPB 50.6 mls 1400 RONNIE Administration - Exam General Appearance: NAD, awake alert Eye: PERRL, anicteric sclera ENT: normocephalic atraumatic, no oropharyngeal lesions Neck: supple, symmetric, no JVD, no thyromegaly, no lymphadenopathy Heart: RRR, no gallops, no rubs, normal peripheral pulses Heart - other findings: S1, S2 Respiratory - other findings: few coarse sounds in bases Gastrointestinal: soft, non-tender, non-distended, normal bowel sounds, no palpable masses Extremities: no cyanosis, no clubbing, no edema Skin: normal turgor, no lesions Neurological: cranial nerve grossly intact, no new deficit Musculoskeletal: normal tone, generalized weakness Psychiatric: oriented to person, oriented to place Hosp A/P (1) Pneumonia due to COVID-19 virus Code(s): U07.1 - COVID-19; J12.89 - OTHER VIRAL PNEUMONIA Status: Acute Plan: Continue Dexamethasone/Lovenox/O2 PRN, isolation protocol (2) Acute metabolic encephalopathy Code(s): G93.41 - METABOLIC ENCEPHALOPATHY Status: Acute Plan: ? multifactorial vs component of dementia, check CT brain today r/o CVA (3) Fall Code(s): W19.XXXA - UNSPECIFIED FALL, INITIAL ENCOUNTER Status: Acute Plan: PT evaluation for functional assessment (4) Acute kidney injury superimposed on CKD Code(s): N17.9 - ACUTE KIDNEY FAILURE, UNSPECIFIED; N18.9 - CHRONIC KIDNEY DISEASE, UNSPECIFIED Status: Acute Plan: Avoid nephrotoxic meds and limit contrast exposure, serial creatinine (5) HTN (hypertension) Code(s): I10 - ESSENTIAL (PRIMARY) HYPERTENSION Status: Chronic Qualifiers: Hypertension type: essential hypertension Qualified Code(s): I10 - Essential (primary) hypertension Plan: Resume home BP regimen, serial BP monitoring - Plan PT/OT, social insurance adviser, out of bed/ambulate, DVT proph w/SCDs Stable currently Continue Dexamethasone Continue Lovenox Check CT brain today PT evaluation for functional assessment ID consult AM lab: CRP, D-dimer, Ferritin
--- NOTE | 2020-03-11 17:55 | CON ---
DATE OF CONSULTATION: 03/11/2020 REASON FOR CONSULTATION: COVID infection. HISTORY OF PRESENT ILLNESS: An 84-year-old with history of coronary artery disease and hypertension with a 7-day history of cough and general malaise. The patient lives by herself and is not clear who gave her the infection, may be a visiting aide comes to her house daily to help with activities of daily living. Initially, O2 saturations were 86 on room air and temperature 98.7. The patient right now is kind of upset because she wants to go home. She is on room air, saturating at 97% to 98%. Denies any headaches. Coughing intermittently when she takes deep breaths, but no sputum production. No chest pain. No abdominal pain or diarrhea. No genitourinary symptoms. Able to eat and drink. No neurological abnormalities noted. PAST MEDICAL HISTORY: Includes: 1. Coronary artery disease. 2. Hiatal hernia. 3. Hypertension. 4. Osteoarthritis. SOCIAL HISTORY: Never smoker, lives by herself, I believe in [place]. ALLERGIES: CHAU INHIBITORS, HYDROCODONE, AND TRAMADOL. CURRENT MEDICATIONS: 1. Xanax. 2. Lipitor. 3. Decadron. 4. Lovenox. 5. Synthroid. 6. Ranexa. FAMILY HISTORY: Noncontributory. PHYSICAL EXAMINATION: VITAL SIGNS: She had a temperature 99.9, but now she has defervesced with the Decadron and she has actually responded so well to the Decadron, saturating 98 now on room air. LUNGS: Faint crackles in the left base. HEART: S1 and S2. Regular rate. ABDOMEN: Soft, not distended. EXTREMITIES: Moves all extremities equally. NEUROLOGIC: She is awake, oriented, follows commands. LABORATORY DATA: White cell count 9.3, hemoglobin 12.5, platelets 316, and lymphocytes 0.8. D-dimer 1.29. Ferritin was normal. CRP was actually quite high at 8.34. COVID was detected. Blood culture, no growth. Chest x-ray with some infiltrates noted, multifocal. ASSESSMENT: 1. Coronary artery disease. 2. Hypertension. 3. Seven days' history of COVID infection with pneumonia. The patient is doing well on Decadron now with saturating 97% to 98% on room air, so she is not eligible for remdesivir. However, we have to bear in mind that she may deteriorate going forward since she is getting into the inflammatory phase of illness, so I recommend keeping her in the hospital for observation for another day at least to make sure she does not deteriorate. Job ID: [id number]
--- NOTE | 2020-03-11 19:28 | CT ---
Head CT without contrast 03/11/2020: COMPARISON: 06/11/2019 HISTORY: Fall, altered mental status TECHNIQUE: Axial CT imaging at 5 mm intervals from vertex through skull base without contrast FINDINGS: The imaged paranasal sinuses and mastoid air cells are well-aerated. No displaced calvarial fracture is seen. There is no intracranial hemorrhage, midline shift, or mass effect. There is stable mild cerebral vol ume loss with stable prominence of the subdural space in bilateral frontal regions. IMPRESSION: No acute findings.
[2020-03-11] MEDS ORDERED: Sodium Chloride 0.9% 1,000 ML IV SCH (21:45)
[2020-03-11] MEDS: Atorvastatin Calcium 20 MG TAB PO SCH (23:17)
[2020-03-11] MEDS: Acetaminophen 500 MG TAB PO SCH (23:17)
[2020-03-11] MEDS: Gabapentin 400 MG CAP PO SCH (23:17)
[2020-03-11] MEDS: ALPRAZolam 0.25 MG TAB PO SCH (23:18)
[2020-03-11] MEDS: Diabetic Tussin 200 MG/10 ML UDCUP PO PRN (23:19)
[2020-03-12] MEDS: Levothyroxine Sodium 100 MCG TAB PO SCH (06:30)
[2020-03-12] MEDS: Enoxaparin Sodium 40 MG/0.4 ML SYRINGE SC SCH ×2 (08:28→20:42)
[2020-03-12] MEDS: Loratadine 10 MG TAB PO SCH (08:29)
[2020-03-12] MEDS: Furosemide 40 MG TAB PO SCH (08:29)
[2020-03-12] MEDS: Gabapentin 400 MG CAP PO SCH ×2 (08:29→20:42)
[2020-03-12] MEDS: Acetaminophen 500 MG TAB PO SCH ×2 (08:29→20:41)
[2020-03-12] MEDS: Aspirin Chewable 81 MG TAB PO SCH (08:29)
[2020-03-12] MEDS: Potassium Chloride 10 MEQ TAB PO SCH (08:29)
[2020-03-12] MEDS: Nebivolol HCl 5 MG TAB PO SCH (08:29)
[2020-03-12] MEDS: Dexamethasone 6 MG in Sodium Chloride 0.9% 50 ML IVPB SCH (15:19)
--- NOTE | 2020-03-12 17:08 | PDOC.HOSPP ---
- Subjective Encounter Date: 03/12/20 Encounter Time: 17:05 Subjective: f/u for COVID PNA receiving Dexamethasone/Lovenox on RA currently. - Objective Vital Signs & Weight: Vital Signs (12 hours) Temp Pulse Resp BP Pulse Ox 03/12/20 16:00 98.4 F 67 20 150/70 H 95 03/12/20 12:00 98.8 F 59 L 20 145/62 H 96 03/12/20 08:00 98.5 F 75 18 165/74 H 94 L Weight Weight 177 lb 4.026 oz I&O: 03/11/20 03/12/20 03/13/20 06:59 06:59 06:59 Intake Total 50 800 Balance 50 800 Result Diagrams: 03/11/20 04:37 03/11/20 04:37 Additional Labs: Microbiology 03/10/20 13:27 Venous blood - Right Arm Blood Culture - Preliminary Specimen has been received and culture in progress. No Growth to date. 03/10/20 13:27 Venous blood - Right Arm Blood Culture - Preliminary NO GROWTH AT 48 HOURS 03/10/20 13:27 Venous blood - Left Arm Blood Culture - Preliminary Specimen has been received and culture in progress. No Growth to date. 03/10/20 13:27 Venous blood - Left Arm Blood Culture - Preliminary NO GROWTH AT 48 HOURS Laboratory Tests 03/10/20 03/10/20 03/10/20 12:25 12:25 12:25 D-Dimer 1.29 H Ferritin 143.60 C-Reactive Protein 8.34 H SARS-CoV-2 Rap RNA(RT-PCR) 03/10/20 03/12/20 03/12/20 14:27 04:51 04:51 D-Dimer Ferritin 135.15 C-Reactive Protein 5.99 H SARS-CoV-2 Rap RNA(RT-PCR) DETECTED A* 03/12/20 04:51 D-Dimer 0.36 Ferritin C-Reactive Protein SARS-CoV-2 Rap RNA(RT-PCR) Radiology Reviewed by me: Yes (CT brain - negative) EKG Reviewed by me: Yes (Tele - SR) Hospitalist ROS - Medication Medications: Active Medications Generic Name Dose Route Start Last Admin Trade Name Freq PRN Reason Stop Dose Admin Acetaminophen 1,000 mg 03/11/20 21:00 03/12/20 08:29 Acetaminophen 500 Mg Tab PO 1,000 mg BID RONNIE Administration Alprazolam 0.25 mg 03/11/20 21:00 03/11/20 23:18 Alprazolam 0.25 Mg Tab PO 0.25 mg HS RONNIE Administration Aspirin 81 mg 03/12/20 09:00 03/12/20 08:29 Aspirin Chewable 81 Mg Tab PO 81 mg QAM RONNIE Administration Atorvastatin Calcium 20 mg 03/11/20 21:00 03/11/20 23:17 Atorvastatin Calcium 20 Mg Tab PO 20 mg QPM RONNIE Administration Enoxaparin Sodium 40 mg 03/10/20 21:00 03/12/20 08:28 Enoxaparin Sodium 40 Mg/0.4 Ml Syringe SC 40 mg 0900,2100 RONNIE Administration Furosemide 40 mg 03/12/20 09:00 03/12/20 08:29 Furosemide 40 Mg Tab PO 40 mg DAILY RONNIE Administration Gabapentin 400 mg 03/11/20 21:00 03/12/20 08:29 Gabapentin 400 Mg Cap PO 400 mg BID RONINE Administration Guaifenesin 100 mg 03/11/20 21:46 03/11/20 23:19 Diabetic Tussin 200 Mg/10 Ml Udcup PO 100 mg Q4H PRN Administration Cough Dexamethasone 6 mg/ Sodium 50.6 mls @ 100 mls/hr 03/11/20 14:00 03/12/20 15:19 Chloride IVPB 50.6 mls 1400 RONNIE Administration Levothyroxine Sodium 100 mcg 03/12/20 06:00 03/12/20 06:30 Levothyroxine Sodium 100 Mcg Tab PO 100 mcg 0600 RONNIE Administration Loratadine 10 mg 03/12/20 09:00 03/12/20 08:29 Loratadine 10 Mg Tab PO 10 mg DAILY RONNIE Administration Nebivolol 10 mg 03/12/20 09:00 03/12/20 08:29 Nebivolol Hcl 5 Mg Tab PO 10 mg DAILY RONNIE Administration Potassium Chloride 10 meq 03/12/20 09:00 03/12/20 08:29 Potassium Chloride 10 Meq Tab PO 10 meq DAILY RONNIE Administration Ranolazine 1,000 mg 03/11/20 21:00 03/12/20 08:29 Ranolazine 500 Mg Tab PO 1,000 mg BID RONNIE Administration Sodium Chloride 10 ml 03/11/20 21:00 03/12/20 08:30 Flush - Normal Saline 10 Ml Syringe IVF 10 ml Q12HR RONNIE Administration - Exam General Appearance: NAD, awake alert Eye: PERRL, anicteric sclera ENT: normocephalic atraumatic, no oropharyngeal lesions Neck: supple, symmetric, no JVD, no thyromegaly, no lymphadenopathy Heart: RRR, no gallops, no rubs, normal peripheral pulses Heart - other findings: S1, S2 Respiratory: CTAB, no wheezes, no rales, no ronchi, normal chest expansion Gastrointestinal: soft, non-tender, non-distended, normal bowel sounds, no palpable masses Extremities: no cyanosis, no clubbing, no edema Skin: normal turgor, no lesions Neurological: cranial nerve grossly intact, no new deficit Musculoskeletal: normal tone, generalized weakness Psychiatric: oriented to person, oriented to place, somnolent Hosp A/P (1) Pneumonia due to COVID-19 virus Code(s): U07.1 - COVID-19; J12.89 - OTHER VIRAL PNEUMONIA Status: Acute Plan: Continue Dexamethasone/Lovenox, continues on RA currently (2) Acute metabolic encephalopathy Code(s): G93.41 - METABOLIC ENCEPHALOPATHY Status: Acute Plan: Intermittent confusion, ? baseline dementia (3) Fall Code(s): W19.XXXA - UNSPECIFIED FALL, INITIAL ENCOUNTER Status: Acute Plan: PT evaluation for functional assessment (4) Acute kidney injury superimposed on CKD Code(s): N17.9 - ACUTE KIDNEY FAILURE, UNSPECIFIED; N18.9 - CHRONIC KIDNEY DISEASE, UNSPECIFIED Status: Acute (5) HTN (hypertension) Code(s): I10 - ESSENTIAL (PRIMARY) HYPERTENSION Status: Chronic Qualifiers: Hypertension type: essential hypertension Qualified Code(s): I10 - Essential (primary) hypertension - Plan PT/OT, social science professor, respiratory therapy, out of bed/ambulate, DVT proph w/SCDs Stable currently Continue Dexamethasone Continue Lovenox CT brain negative PT evaluation for functional assessment ID consult 24h caregiver at home after d/c AM lab: CRP, D-dimer, Ferritin
[2020-03-12] MEDS ORDERED: Proctozone-HC 30 GM TUBE TOP SCH (17:45)
[2020-03-12] MEDS: ALPRAZolam 0.25 MG TAB PO SCH (20:41)
[2020-03-12] MEDS: Atorvastatin Calcium 20 MG TAB PO SCH (20:42)
[2020-03-13] MEDS: Levothyroxine Sodium 100 MCG TAB PO SCH (05:10)
[2020-03-13] MEDS: Diabetic Tussin 200 MG/10 ML UDCUP PO PRN ×3 (10:08→19:15)
[2020-03-13] MEDS: Furosemide 40 MG TAB PO SCH (10:09)
[2020-03-13] MEDS: Potassium Chloride 10 MEQ TAB PO SCH (10:09)
[2020-03-13] MEDS: Aspirin Chewable 81 MG TAB PO SCH (10:09)
[2020-03-13] MEDS: Acetaminophen 325 MG TAB PO SCH ×4 (10:09→20:52)
[2020-03-13] MEDS: Nebivolol HCl 5 MG TAB PO SCH (10:09)
[2020-03-13] MEDS: Gabapentin 400 MG CAP PO SCH ×2 (10:09→20:52)
[2020-03-13] MEDS: Enoxaparin Sodium 40 MG/0.4 ML SYRINGE SC SCH ×2 (10:10→20:52)
[2020-03-13] MEDS: Proctozone-HC 30 GM TUBE TOP SCH (10:10)
[2020-03-13] MEDS: Loratadine 10 MG TAB PO SCH (10:10)
[2020-03-13] MEDS: Dexamethasone 6 MG in Sodium Chloride 0.9% 50 ML IVPB SCH (13:05)
--- NOTE | 2020-03-13 18:03 | PDOC.HOSPP ---
- Subjective Encounter Date: 03/13/20 Encounter Time: 17:50 Subjective: f/u for COVID PNA but no O2 requirement. States feeling ok and ready to go home. - Objective Vital Signs & Weight: Vital Signs (12 hours) Temp Pulse Resp BP Pulse Ox 03/13/20 15:30 97.9 F 69 20 118/67 97 03/13/20 13:15 98.3 F 61 18 130/63 96 03/13/20 10:35 98.1 F 69 16 129/62 98 03/13/20 06:15 64 167/70 H 95 Weight Weight 190 lb 4.143 oz I&O: 03/12/20 03/13/20 03/14/20 06:59 06:59 06:59 Intake Total 800 1295 Output Total 500 Balance 800 795 Result Diagrams: 03/11/20 04:37 03/11/20 04:37 Additional Labs: Microbiology 03/10/20 13:27 Venous blood - Right Arm Blood Culture - Preliminary Specimen has been received and culture in progress. No Growth to date. 03/10/20 13:27 Venous blood - Right Arm Blood Culture - Preliminary NO GROWTH AT 48 HOURS 03/10/20 13:27 Venous blood - Left Arm Blood Culture - Preliminary Specimen has been received and culture in progress. No Growth to date. 03/10/20 13:27 Venous blood - Left Arm Blood Culture - Preliminary NO GROWTH AT 48 HOURS Laboratory Tests 03/10/20 03/10/20 03/10/20 12:25 12:25 12:25 D-Dimer 1.29 H Ferritin 143.60 C-Reactive Protein 8.34 H SARS-CoV-2 Rap RNA(RT-PCR) 03/10/20 03/12/20 03/12/20 14:27 04:51 04:51 D-Dimer Ferritin 135.15 C-Reactive Protein 5.99 H SARS-CoV-2 Rap RNA(RT-PCR) DETECTED A* 03/12/20 04:51 D-Dimer 0.36 Ferritin C-Reactive Protein SARS-CoV-2 Rap RNA(RT-PCR) Hospitalist ROS - Medication Medications: Active Medications Generic Name Dose Route Start Last Admin Trade Name Freq PRN Reason Stop Dose Admin Acetaminophen 650 mg 03/13/20 09:00 03/13/20 17:55 Acetaminophen 325 Mg Tab PO 650 mg QID RONNIE Administration Alprazolam 0.25 mg 03/11/20 21:00 03/12/20 20:41 Alprazolam 0.25 Mg Tab PO 0.25 mg HS RONNIE Administration Aspirin 81 mg 03/12/20 09:00 03/13/20 10:09 Aspirin Chewable 81 Mg Tab PO 81 mg QAM RONNIE Administration Atorvastatin Calcium 20 mg 03/11/20 21:00 03/12/20 20:42 Atorvastatin Calcium 20 Mg Tab PO 20 mg QPM RONNIE Administration Enoxaparin Sodium 40 mg 03/10/20 21:00 03/13/20 10:10 Enoxaparin Sodium 40 Mg/0.4 Ml Syringe SC 40 mg 0900,2100 RONNIE Administration Furosemide 40 mg 03/12/20 09:00 03/13/20 10:09 Furosemide 40 Mg Tab PO 40 mg DAILY RONNIE Administration Gabapentin 400 mg 03/11/20 21:00 03/13/20 10:09 Gabapentin 400 Mg Cap PO 400 mg BID RONNIE Administration Guaifenesin 100 mg 03/11/20 21:46 03/13/20 13:05 Diabetic Tussin 200 Mg/10 Ml Udcup PO 100 mg Q4H PRN Administration Cough Hydrocortisone 1 gm 03/13/20 09:00 03/13/20 10:10 Proctozone-Hc 30 Gm Tube TOP 1 applic DAILY RONNIE Administration Dexamethasone 6 mg/ Sodium 50.6 mls @ 100 mls/hr 03/11/20 14:00 03/13/20 13:05 Chloride IVPB 50.6 mls 1400 RONNIE Administration Levothyroxine Sodium 100 mcg 03/12/20 06:00 03/13/20 05:10 Levothyroxine Sodium 100 Mcg Tab PO 100 mcg 0600 RONNIE Administration Loratadine 10 mg 03/12/20 09:00 03/13/20 10:10 Loratadine 10 Mg Tab PO 10 mg DAILY RONNIE Administration Nebivolol 10 mg 03/12/20 09:00 03/13/20 10:09 Nebivolol Hcl 5 Mg Tab PO 10 mg DAILY RONNIE Administration Potassium Chloride 10 meq 03/12/20 09:00 03/13/20 10:09 Potassium Chloride 10 Meq Tab PO 10 meq DAILY RONNIE Administration Ranolazine 1,000 mg 03/11/20 21:00 03/13/20 10:09 Ranolazine 500 Mg Tab PO 1,000 mg BID RONNIE Administration Sodium Chloride 10 ml 03/11/20 21:00 03/13/20 10:10 Flush - Normal Saline 10 Ml Syringe IVF 10 ml Q12HR RONNIE Administration - Exam General Appearance: NAD, awake alert Eye: PERRL, anicteric sclera ENT: normocephalic atraumatic, no oropharyngeal lesions Neck: supple, symmetric, no JVD, no thyromegaly, no lymphadenopathy Heart: RRR, no gallops, no rubs, normal peripheral pulses Respiratory: CTAB, no wheezes, no rales, normal chest expansion, rhonchi Gastrointestinal: soft, non-tender, non-distended, normal bowel sounds, no palpable masses Extremities: no cyanosis, no clubbing, no edema Skin: normal turgor, no lesions Neurological: cranial nerve grossly intact, no new deficit Musculoskeletal: normal tone, normal strength, no muscle wasting Psychiatric: normal affect, A&O x 3 Hosp A/P (1) Pneumonia due to COVID-19 virus Code(s): U07.1 - COVID-19; J12.89 - OTHER VIRAL PNEUMONIA Status: Acute Plan: Continue Dexamethasone/Lovenox (2) Acute metabolic encephalopathy Code(s): G93.41 - METABOLIC ENCEPHALOPATHY Status: Acute Plan: Resolved (3) Fall Code(s): W19.XXXA - UNSPECIFIED FALL, INITIAL ENCOUNTER Status: Acute (4) Acute kidney injury superimposed on CKD Code(s): N17.9 - ACUTE KIDNEY FAILURE, UNSPECIFIED; N18.9 - CHRONIC KIDNEY DISEASE, UNSPECIFIED Status: Acute (5) HTN (hypertension) Code(s): I10 - ESSENTIAL (PRIMARY) HYPERTENSION Status: Chronic Qualifiers: Hypertension type: essential hypertension Qualified Code(s): I10 - Essential (primary) hypertension - Plan PT/OT, DVT proph w/SCDs Stable currently Continue Dexamethasone Continue Lovenox CT brain negative PT evaluation for functional assessment ID consult 24h caregiver at home after d/c AM lab: CRP, D-dimer, Ferritin Home in 24h
[2020-03-13] MEDS: Atorvastatin Calcium 20 MG TAB PO SCH (20:52)
[2020-03-13] MEDS: ALPRAZolam 0.25 MG TAB PO SCH (20:52)
[2020-03-14] MEDS: Levothyroxine Sodium 100 MCG TAB PO SCH (04:06)
[2020-03-14] MEDS: Acetaminophen 325 MG TAB PO PRN ×2 (04:06→11:07)
[2020-03-14] MEDS: Aspirin Chewable 81 MG TAB PO SCH (08:54)
[2020-03-14] MEDS: Proctozone-HC 30 GM TUBE TOP SCH (08:54)
[2020-03-14] MEDS: Enoxaparin Sodium 40 MG/0.4 ML SYRINGE SC SCH (08:54)
[2020-03-14] MEDS: Gabapentin 400 MG CAP PO SCH (08:54)
[2020-03-14] MEDS: Nebivolol HCl 5 MG TAB PO SCH (08:55)
[2020-03-14] MEDS: Furosemide 40 MG TAB PO SCH (08:55)
[2020-03-14] MEDS: Loratadine 10 MG TAB PO SCH (08:55)
[2020-03-14] MEDS: Potassium Chloride 10 MEQ TAB PO SCH (08:55)
[2020-03-14] MEDS: Diabetic Tussin 200 MG/10 ML UDCUP PO PRN (09:16)
[2020-03-14 10:13] VITALS: BP 137/63; TEMP 98.2
--- NOTE | 2020-03-15 01:37 | DIS ---
DATE OF ADMISSION: 03/10/2020 DATE OF DISCHARGE: 03/14/2020 DISCHARGE DIAGNOSES: 1. Pneumonia secondarily to COVID-19 virus, improved. 2. Acute metabolic encephalopathy multifactorial, improved. 3. Status post fall. 4. Acute kidney injury on chronic kidney disease, improved. 5. Hypertension, stable. CONSULTATION: Dr. Don Robbins with Infectious Disease Service. PERTINENT LABORATORY AND X-RAY FINDINGS: Ferritin ranged between 135 to 143. CRP ranged between 5.99 to 8.34. BNP 102. D-dimer ranged between 0.36 to 1.29. COVID-19 PCR detected 03/10/2020. Blood cultures x2 dated 03/10/2020, showed no growth at 48 hours. Clostridium difficile antigen and toxin dated 03/12/2020, negative. Portable chest x-ray dated 03/10/2020, showed multifocal pneumonia. CT of the brain without contrast dated 03/11/2020, showed no acute intracranial process. HOSPITAL COURSE: The patient was initially admitted after presenting with increased shortness of breath and cough with chest imaging showing bilateral pulmonary infiltrates with positive COVID-19 PCR. The patient initially received IV cefazolin empirically in the emergency room and in addition, was placed on 4 L of oxygen. The patient also received dexamethasone in addition to subcutaneous Lovenox and monitored for clinical response. The patient did not actually require oxygen therapy after initial evaluation in the emergency room, maintaining O2 saturations in the mid 90% range on room air. The patient continued on IV Decadron, stabilizing with general supportive management. The patient did not require remdesivir or convalescent plasma and overall remained clinically stable. I have examined the patient at the time of discharge and discussed followup instructions. The patient verbalizes understanding and agreement, ready for discharge on 03/14/2020. DISCHARGE MEDICATIONS: 1. Decadron 6 mg p.o. daily x7 days. 2. Enteric-coated aspirin 81 mg p.o. daily. 3. Bystolic 10 mg p.o. daily. 4. Lasix 40 mg p.o. daily. 5. Gabapentin 400 mg p.o. b.i.d. 6. Levothyroxine 100 mcg p.o. daily. 7. Lipitor 20 mg p.o. at bedtime. 8. Loratadine 10 mg p.o. daily. 9. Nitroglycerin 0.4 mg sublingually q.5 minutes p.r.n. chest pain. 10. Omeprazole 40 mg p.o. b.i.d. 11. Potassium chloride 10 mEq p.o. daily. 12. Ranexa 1000 mg p.o. b.i.d. 13. Xanax 0.25 mg p.o. at bedtime. FOLLOWUP: The patient may follow up with her primary care provider, Dr. Damir Montez. CONDITION ON DISCHARGE: Stable. ACTIVITY: Ad-sky. Rolling walker with standby assistance. DIET: Heart healthy. CODE STATUS: Do not attempt resuscitation. DISPOSITION: To home, 03/14/2020. TIME SPENT: Total time preparing and coordinating discharge, 32 minutes. Job ID: [id number]
== END 2020-03-14 11:00 | disposition home or self-care (01) | DRG 177 ==
LOC: ERS 11:49 → 2SW 13:25
PROVIDERS: ADMIT Student in an Organized Health Care Education/Training Program; ATTEND Student in an Organized Health Care Education/Training Program
PROC: 8E0ZXY6 Isolation (ICD-10-PCS; principal; 2020-03-10)
DX: U07.1 COVID-19 (principal); J12.89 Other viral pneumonia; G93.41 Metabolic encephalopathy; N17.9 Acute kidney failure, unspecified; Z66 Do not resuscitate; I12.9 Hypertensive chronic kidney disease with stage 1 through stage 4 chronic kidney disease, or unspecified chronic kidney disease; I25.10 Atherosclerotic heart disease of native coronary artery without angina pectoris; M19.90 Unspecified osteoarthritis, unspecified site; M41.9 Scoliosis, unspecified; Z96.653 Presence of artificial knee joint, bilateral; K21.9 Gastro-esophageal reflux disease without esophagitis; K44.9 Diaphragmatic hernia without obstruction or gangrene; N18.9 Chronic kidney disease, unspecified; Z88.5 Allergy status to narcotic agent; Z88.8 Allergy status to other drugs, medicaments and biological substances; Z79.899 Other long term (current) drug therapy
CPT/HCPCS: 36415; 36416; 70450; 71045; 80048; 80053; 82728; 83880; 84484; 85025; 85379; 86140; 87040; 87324; 87449; 93005; 96365; J0690; J1100; J1650; U0002